=== PATIENT | male | born 1970 | race Caucasian/White ===

== ENCOUNTER 2020-10-24 23:03 | Emergency (ER) | payer BC ==
[~2020-10-24] VITALS: Ht 182.9 cm; Wt 118.2 kg
[2020-10-24 23:12] VITALS: BP 134/88; PULSE 89; TEMP 101.8
[2020-10-25] MEDS ORDERED: CELEBREX 200MG200 MG PO (14:45)
[2020-10-25] MEDS ORDERED: PRIL40 PO (14:45)
[2020-10-25] MEDS ORDERED: LIPITOR20 MG PO (14:45)
[2020-10-25] MEDS ORDERED: NORCO 325 MG-51 TAB PO (14:46)
[2020-10-25] MEDS ORDERED: PRINIVIL20 MG PO (14:46)
== END 2020-10-25 00:49 | disposition home or self-care (01) ==
LOC: COL.ER 23:03
DX: U07.1 COVID-19 (principal); I10 Essential (primary) hypertension

== ENCOUNTER 2020-10-25 13:38 | Outpatient (CLI) | payer BC ==
[~2020-10-25] VITALS: Ht 182.9 cm; Wt 118.0 kg
[2020-10-25] MEDS ORDERED: CELEBREX 200MG200 MG PO (14:45)
[2020-10-25] MEDS ORDERED: LIPITOR20 MG PO (14:45)
[2020-10-25] MEDS ORDERED: PRIL40 PO (14:45)
[2020-10-25] MEDS ORDERED: NORCO 325 MG-51 TAB PO (14:46)
[2020-10-25] MEDS ORDERED: PRINIVIL20 MG PO (14:46)
[2020-10-25 14:51] VITALS: BP 123/97; PULSE 90; TEMP 98.3
[2020-10-25 14:54] VITALS: BP 135/89; PULSE 77
[2020-10-25 15:15] VITALS: BP 123/90; PULSE 76
[2020-10-25 15:30] VITALS: BP 129/88; PULSE 80
[2020-10-25 15:45] VITALS: BP 130/93; PULSE 80
[2020-10-25 16:00] VITALS: BP 115/87; PULSE 87; TEMP 97.9
--- NOTE | 2020-10-25 16:15 | NUR ---
Pt tolereated infusion without issue. INT DC'd with catheter intact. Pt escorted out to ED entrance.
== END 2020-10-25 16:15 | disposition home or self-care (01) ==
LOC: EUO 13:38
DX: U07.1 COVID-19 (principal)
CPT/HCPCS: Q0244